=== PATIENT | female | born 1960 | race African-American/Black ===

== ENCOUNTER 2018-11-14 12:03 | Emergency (ER) | payer MEDICAID ==
[~2018-11-14] VITALS: Ht 160 cm; Wt 90.9 kg
[2018-11-14] MEDS ORDERED: AMLO-511 PO (12:23)
[2018-11-14] MEDS ORDERED: OMEP20 PO (12:23)
[2018-11-14] MEDS ORDERED: ALBU8HFA IH (12:23)
[2018-11-14] MEDS ORDERED: PHEN10CA2 PO (12:23)
[2018-11-14] MEDS ORDERED: ACETAMINOPHEN 500 MG TABLET PO ONE (13:15)
[2018-11-14 13:54] LABS: INFLUENZA TYPE A POSITIVE FOR TYPE A (NEGATIVE); INFLUENZA TYPE B NEGATIVE FOR TYPE B (NEGATIVE)
[2018-11-14] MEDS ORDERED: OSELTAMIVIR PHOSPHATE 75 MG CAPSULE PO ONE (14:15)
[2018-11-14] MEDS ORDERED: KETOROLAC TROMETHAMINE 30 MG/ML VIAL IVP ONE (15:15)
[2018-11-14] MEDS ORDERED: SODIUM CHLORIDE 0.9% 1,000 ML IV ONE (15:15)
[2018-11-14] MEDS ORDERED: HydrALAZINE HCL 20 MG/ML VIAL IVP ONE (15:15)
[2018-11-14 17:10] VITALS: BP 110/72
== END 2018-11-14 17:15 | disposition home or self-care (01) ==
LOC: EMS 12:03
DX: J11.1 Influenza due to unidentified influenza virus with other respiratory manifestations (principal); R11.0 Nausea; I10 Essential (primary) hypertension; Z79.899 Other long term (current) drug therapy; Z88.0 Allergy status to penicillin; Z85.42 Personal history of malignant neoplasm of other parts of uterus
CPT/HCPCS: 71046; 87804; 96374; 99284; J1885; J7030; J0360